=== PATIENT | female | born 1990 | race Caucasian/White ===

== ENCOUNTER 2020-01-01 11:22 | Emergency (ER) | payer BC, OTHER ==
[2020-01-01] MEDS ORDERED: methylPREDNISolone SOD SUCCI 125 MG/2 ML VIAL IV STA (12:06)
[2020-01-01] MEDS ORDERED: SODIUM CHLORIDE 0.9% 1,000 ML IV ONE (12:06)
[2020-01-01] MEDS ORDERED: guaiFENesin-Coden 100-10MG/5ML 10 ML CUP PO STA (12:06)
[2020-01-01] MEDS ORDERED: IPRATROPIUM-ALBUTEROL 3 ML NEB INHALATION STA (12:06)
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
--- NOTE | 2020-01-01 13:03 | XR ---
EXAMINATION TYPE: XR chest 2V DATE OF EXAM: 01/01/2020 COMPARISON: 05/10/2015 HISTORY: Cough and congestion TECHNIQUE: Frontal and lateral views of the chest are obtained. FINDINGS: There is increased density over the spine in the lateral image. No pleural effusion or pne umothorax. The cardiac silhouette size is within normal limits. The osseous structures are intact. IMPRESSION: Retrocardiac opacity overlying the lower thoracic spine on the lateral view may represen t pneumonia in the appropriate clinical setting. This is new from the prior of 2014.
[2020-01-01] MEDS ORDERED: cefTRIAXone IN SWFI 1,000 MG/10 ML SYRINGE IVP STA (13:31)
[2020-01-01 14:09] VITALS: BP 146/92; PULSE 105; RESP 18; TEMP 97.4
== END 2020-01-01 14:45 | disposition home or self-care (01) ==
LOC: EC 11:22
DX: J18.9 Pneumonia, unspecified organism (principal); I10 Essential (primary) hypertension; Z79.1 Long term (current) use of non-steroidal anti-inflammatories (NSAID); Z79.899 Other long term (current) drug therapy; Z88.0 Allergy status to penicillin; Z87.891 Personal history of nicotine dependence
CPT/HCPCS: 94640; 71046; 99284; 96374; 96375; 96361; J2930; J0696

== ENCOUNTER 2020-01-07 00:20 | Observation (INO) | payer OTHER ==
[2020-01-07] MEDS ORDERED: ALBUTEROL NEBULIZED 2.5 MG/3 ML INHALATION STA (00:47)
[2020-01-07] MEDS ORDERED: predniSONE 20 MG TAB PO STA (00:47)
[2020-01-07] MEDS ORDERED: IPRATROPIUM-ALBUTEROL 3 ML NEB INHALATION STA (00:47)
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
[2020-01-07 01:15] LABS: Basophils # (A) 0.1 k/uL (0-0.2); Basophils % (A) 1 %; Eosinophils # (A) 0.2 k/uL (0-0.7); Eosinophils % (A) 1 %; HCT 40.4 % (34.0-46.0); HGB 13.9 gm/dL (11.4-16.0); Lymphocytes # (A) 3.7 k/uL (1.0-4.8); Lymphocytes % (A) 25 %; MCH 30.4 pg (25.0-35.0); MCHC 34.4 g/dL (31.0-37.0); MCV 88.3 fL (80.0-100.0); Mean Platelet Volume 7.1; Monocytes # (A) 0.6 k/uL (0-1.0); Monocytes % (A) 4 %; Neutrophils # (A) 9.9 k/uL (1.3-7.7); Neutrophils % (A) 67 %; Platelet Count 606 k/uL (150-450); RBC 4.58 m/uL (3.80-5.40); RDW 13.1 % (11.5-15.5); WBC 14.9 k/uL (3.8-10.6)
[2020-01-07 01:24] LABS: African American GFR (CKD) >90 (>60 ml/min/1.73 sqM); Anion Gap 8 mmol/L; Blood Urea Nitrogen 13 mg/dL (7-17); Calcium 9.2 mg/dL (8.4-10.2); Carbon Dioxide 26 mmol/L (22-30); Chloride 101 mmol/L (98-107); Glucose 114 mg/dL (74-99); Non-African American GFR(CKD) >90 (>60 ml/min/1.73 sqM); Potassium 4.1 mmol/L (3.5-5.1); Sodium 135 mmol/L (137-145)
--- NOTE | 2020-01-07 02:51 | CT ---
EXAMINATION TYPE: CT chest angio for PE DATE OF EXAM: 01/07/2020 COMPARISON: None HISTORY: Patient presents with elevated d-dimer. CT DLP: 1103.1 mGycm Automated exposure control for dose reduction was used. CONTRAST: Performed with IV Contrast, patient injected with 75 mL of Isovue 370. There are 3-D post processed images. Images were performed from the thoracic inlet to the diaphragm with IV contrast. There is some airspace consolidation and atelectasis left lower lobe. There are multiple air bronchog deonna. There is no pleural effusion. Right lung is clear. There is no mediastinal adenopathy. There are no hilar masses. Thoracic aorta is intact without evide nce of aneurysm or dissection. There is normal contrast opacification of the pulmonary arteries. There is no filling defect. Bony thorax is intact. IMPRESSION: Left lower lobe pneumonia and atelectasis. No evidence of pulmonary embolism. Normal heart.
[2020-01-07] MEDS ORDERED: PNEUMONIA PROTOCOL UTILIZED 1 EACH MISC PO PRN (04:05)
[2020-01-07] MEDS ORDERED: LEVOFLOXACIN 750MG-D5W PMX 750 MG in DEXTROSE/WATER 1 150ML.BAG IVPB STA (04:05)
[2020-01-07] MEDS ORDERED: AZTREONAM 2 GM in SODIUM CHLORIDE 0.9% 100 ML IVPB STA (04:08)
[2020-01-07] MEDS ORDERED: SODIUM CHLORIDE 0.9% 1,000 ML IV SCH (04:15)
[2020-01-07] MEDS ORDERED: IPRATROPIUM-ALBUTEROL 3 ML NEB INHALATION SCH (08:00)
[2020-01-07] MEDS ORDERED: PNEUMOCOCCAL VACC-PNEUMOVAX 23 25 MCG/0.5 ML VIAL IM ONE ×2 (11:41→12:09)
[2020-01-07] MEDS ORDERED: INFLUENZA VACCINE (6 MOS+) 60 MCG/0.5 ML SYRINGE IM ONE ×2 (11:41→12:09)
[2020-01-07] MEDS ORDERED: methylPREDNISolone SOD SUCCI 125 MG/2 ML VIAL IV STA (11:55)
[2020-01-07] MEDS ORDERED: NICOTINE 14MG/24HR PATCH TRANSDERM SCH (12:00)
[2020-01-07] MEDS ORDERED: ENOXAPARIN 40 MG/0.4 ML SYRINGE SQ SCH (12:00)
[2020-01-07] MEDS: BUDESONIDE 1 MG/2 ML NEBU INHALATION SCH ×2 (12:06→16:24)
[2020-01-07] MEDS: IPRATROPIUM-ALBUTEROL 3 ML NEB INHALATION SCH ×2 (12:08→16:21)
[2020-01-07] MEDS ORDERED: AZTREONAM 2 GM in SODIUM CHLORIDE 0.9% 100 ML IVPB SCH (12:30)
[2020-01-07 13:33] VITALS: BP 133/82; RESP 20; TEMP 97.6
--- NOTE | 2020-01-07 15:43 | XR ---
EXAMINATION TYPE: XR chest 2V DATE OF EXAM: 01/07/2020 COMPARISON: Prior chest x-ray 01/01/2020 HISTORY: Pneumonia TECHNIQUE: Frontal and lateral views of the chest are obtained. FINDINGS: There is some improvement in aeration within the left lower lobe. Some persistent increase d density is present. No pneumothorax or pleural effusion. Cardiac mediastinal silhouette, pulmonary vascularity and naseem are stable. IMPRESSION: Improvement in patient's pneumonia.
[2020-01-07 16:41] VITALS: PULSE 94
[2020-01-08] MEDS ORDERED: LEVOFLOXACIN 750MG-D5W PMX 750 MG in DEXTROSE/WATER 1 150ML.BAG IVPB SCH (04:15)
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
== END 2020-01-07 18:09 | disposition home or self-care (01) ==
LOC: EC 00:20 → 4SSUR 04:05 → 6NMEDSUR 05:01
PROVIDERS: ADMIT Hospitalist; ATTEND Hospitalist
DX: J12.9 Viral pneumonia, unspecified (principal); J98.01 Acute bronchospasm; F17.210 Nicotine dependence, cigarettes, uncomplicated; E66.01 Morbid (severe) obesity due to excess calories; Z68.41 Body mass index [BMI] 40.0-44.9, adult; G89.29 Other chronic pain; M54.9 Dorsalgia, unspecified; F41.9 Anxiety disorder, unspecified; Z79.51 Long term (current) use of inhaled steroids; Z79.52 Long term (current) use of systemic steroids; Z79.899 Other long term (current) drug therapy; Z79.2 Long term (current) use of antibiotics; Z23 Encounter for immunization; Z88.0 Allergy status to penicillin; V89.2XXA Person injured in unspecified motor-vehicle accident, traffic, initial encounter; Y92.410 Unspecified street and highway as the place of occurrence of the external cause
CPT/HCPCS: 96366 ×2; 96375; 96365; 96367; 99285; 36415; 94640 ×2; 94760; 85379; 83880; 80048; 85025; 87040; 87502; 71046; 71275; 90732; 90686; G0378 ×2; G0008; G0009; J2930; J1956; J7512; Q9967

== ENCOUNTER 2022-03-13 10:41 | Outpatient (CLI) | payer OTHER ==
[2022-03-13 11:41] LABS: Appearance,Urine Clear (Clear); Bilirubin,Urine Negative (Negative); Blood,Urine Negative (Negative); Color,Urine Yellow; Glucose,Urine (UA) Negative (Negative); Ketones,Urine Negative (Negative); Leukocyte Esterase,Urine Negative (Negative); Nitrite,Urine Negative (Negative); PH, Urine 6.5 (5.0-8.0); Protein,Urine Negative (Negative); Specific Gravity,Urine 1.008 (1.001-1.035); Urobilinogen,Urine <2.0 mg/dL (<2.0)
[2022-03-13 11:50] LABS: Creatinine,Urine Random 58.6 mg/dL; Protein/Creatinine Ratio,Urine 0.171
[2022-03-13 12:19] LABS: Basophils % (A) 0 %; Eosinophils # (A) 0.1 k/uL (0-0.7); Eosinophils % (A) 1 %; HCT 36.1 % (34.0-46.0); Lymphocytes # (A) 1.4 k/uL (1.0-4.8); Lymphocytes % (A) 18 %; MCH 29.8 pg (25.0-35.0); MCHC 33.2 g/dL (31.0-37.0); MCV 89.9 fL (80.0-100.0); Mean Platelet Volume 7.6; Monocytes # (A) 0.3 k/uL (0-1.0); Monocytes % (A) 4 %; Neutrophils # (A) 5.5 k/uL (1.3-7.7); Neutrophils % (A) 75 %; Platelet Count 300 k/uL (150-450); RBC 4.01 m/uL (3.80-5.40); RDW 14.2 % (11.5-15.5); WBC 7.4 k/uL (3.8-10.6)
[2022-03-13 12:23] LABS: ALT 12 U/L (4-34); AST 19 U/L (14-36); African American GFR (CKD) >90 (>60 ml/min/1.73 sqM); Blood Urea Nitrogen 7 mg/dL (7-17); LDH 362 U/L (313-618); Non-African American GFR(CKD) >90 (>60 ml/min/1.73 sqM); Uric Acid 5.2 mg/dL (3.7-7.4)
[2022-03-13 12:43] VITALS: BP 118/73; PULSE 100; RESP 18; TEMP 97.2
--- NOTE | 2022-04-01 11:56 | P.MSEPDOC ---
Presenting Problems - Arrival Data Date of Arrival on Unit: 03/13/22 Time of Arrival on Unit: 10:36 Mode of Transport: Ambulatory - Complaint OB-Reason for Admission/Chief Complaint: Headache, Visual Disturbances, PIH, Elevated Blood Pressure Comment: pt presents to triage with complaints of increased blood pressures at home that came down with her labetalol, she is having on going periods of vision loss and headache Medical History - Information : 1 Para: 0 Term: 0 : 0 Abortions: Spontaneous or Elective: 0 Number of Living Children: 0 - Gestational Age Gestational Age by PEACE (wks/days): 34 Weeks and 6 Days - History Complications: Other Review of Systems - Review of Systems Constitutional: No problems Breast: No problems ENT: No problems Cardiovascular: No problems Respiratory: No problems Gastrointestinal: No problems Genitourinary: No problems Musculoskeletal: No problems Neurological: No problems Skin: No problems Vital Signs - Temperature Temperature: 97.2 F Temperature Source: Temporal Artery Scan - Pulse Right Sitting Brachial Pulse Rate: 100 Pulse Assessment Method: Automatic Cuff - Respirations Respiratory Rate: 18 O2 Sat by Pulse Oximetry: 100 - Blood Pressure Right Arm Blood Pressure: 118/73 Blood Pressure Mean: 88 Blood Pressure Source: Automatic Cuff Medical Screen Scoring - Uterine Contractions Frequency From (mins): 0 Frequency To (mins): 0 Intensity: Absent - Assessment - Baby A Baseline FHR: 145 Heart Rate - NICHD Category: Category I (Normal) NST: Reactive Physician Notification - Physician Notified Physician Notified Date: 03/13/22 Physician Notified Time: 11:04 Physician: Baron Westbrook Order Received: Yes Maternal Triage Index - Maternal Triage Index Presenting for scheduled procedure w/no complaint: No - Stat/Priority 1 Stat Priority 1: No - Urgent/Priority 2 Urgent Priority 2: No - Prompt/Priority 3 Prompt Priority 3: No - Non-Urgent/Priority 4 Non-Urgent Priority 4: Yes Criteria Met for Priority 4: pt presents to triage with complaints of increased blood pressure at home, headache and vision loss. Blood pressure in triage on admission 118/73 Disposition - Disposition OB Disposition: Physician follow up in office, Discharge to home, Written follow up instructions reviewed Discharge Date: 03/13/22 Discharge Time: 12:30 I agree with the RN Medical Screening Exam: Yes Physician's MSE Comment: I have neither seen nor examined the patient. Case reviewed; plan agreed upon as documented in EMR&OBIX.: Yes Diagnosis: RELATED CONDITIONS, UNSPECIFIED, THIRD TRIMESTER
== END 2022-03-13 12:30 | disposition home or self-care (01) ==
LOC: FBPOP 10:41
PROVIDERS: ATTEND Obstetrics & Gynecology
DX: O13.3 Gestational [pregnancy-induced] hypertension without significant proteinuria, third trimester (principal); Z3A.34 34 weeks gestation of pregnancy; Z88.0 Allergy status to penicillin; Z88.2 Allergy status to sulfonamides; Z87.891 Personal history of nicotine dependence
CPT/HCPCS: 59025; 82570; 84156; 82565; 83615; 84450; 84460; 84520; 84550; 85025; 81003; G0463; 99215

== ENCOUNTER 2022-03-16 14:03 | Observation (INO) | payer OTHER ==
[2022-03-16] MEDS: BETAMET ACET-BETAMETH SOD PHOS 6 MG/ML MDV IM SCH (14:57)
[2022-03-16 15:07] LABS: Basophils % (A) 0 %; Eosinophils # (A) 0.1 k/uL (0-0.7); Eosinophils % (A) 1 %; HCT 37.8 % (34.0-46.0); HGB 12.4 gm/dL (11.4-16.0); Lymphocytes # (A) 1.8 k/uL (1.0-4.8); Lymphocytes % (A) 19 %; MCH 29.7 pg (25.0-35.0); MCHC 32.9 g/dL (31.0-37.0); MCV 90.4 fL (80.0-100.0); Mean Platelet Volume 8.3; Monocytes # (A) 0.5 k/uL (0-1.0); Monocytes % (A) 5 %; Neutrophils % (A) 74 %; Platelet Count 295 k/uL (150-450); RBC 4.18 m/uL (3.80-5.40); RDW 13.5 % (11.5-15.5); WBC 9.5 k/uL (3.8-10.6)
[2022-03-16 15:09] LABS: ALT 15 U/L (4-34); African American GFR (CKD) >90 (>60 ml/min/1.73 sqM); Blood Urea Nitrogen 5 mg/dL (7-17); Non-African American GFR(CKD) >90 (>60 ml/min/1.73 sqM); Uric Acid 4.9 mg/dL (3.7-7.4)
[2022-03-16 15:26] LABS: AST 23 U/L (14-36); LDH 553 U/L (313-618)
[2022-03-16 15:32] LABS: Appearance,Urine Cloudy (Clear); Bacteria,Urine Rare /hpf; Bilirubin,Urine Negative (Negative); Blood,Urine Negative (Negative); Color,Urine Yellow; Glucose,Urine (UA) Negative (Negative); Ketones,Urine Negative (Negative); Leukocyte Esterase,Urine Moderate (Negative); Mucus,Urine Few /hpf; Nitrite,Urine Negative (Negative); Protein,Urine Trace (Negative); RBC,Urine 1 /hpf (0-5); Specific Gravity,Urine 1.022 (1.001-1.035); Squamous Epithelial Cell,Urine 22 /hpf (0-4); Urobilinogen,Urine <2.0 mg/dL (<2.0); WBC,Urine 6 /hpf (0-5)
[2022-03-16 15:39] LABS: INR 0.8 (<1.2); Partial Thromboplastin Time 24.7 sec (22.0-30.0); Prothrombin Time 9.4 sec (9.0-12.0)
[2022-03-16 15:58] LABS: Creatinine,Urine Random 160.6 mg/dL; Protein/Creatinine Ratio,Urine 0.062
[2022-03-16] MEDS ORDERED: ONDANSETRON 4 MG/2 ML VIAL IVP PRN (16:14)
[2022-03-16] MEDS ORDERED: ACETAMINOPHEN TAB 500 MG TAB PO PRN (17:00)
[2022-03-16] MEDS: LABETALOL 200 MG TAB PO SCH (21:03)
[2022-03-17 07:22] VITALS: RESP 18
[2022-03-17] MEDS ORDERED: PANTOPRAZOLE 40 MG TABLET PO SCH (07:30)
[2022-03-17 07:55] LABS: ALT 14 U/L (4-34); AST 17 U/L (14-36); African American GFR (CKD) >90 (>60 ml/min/1.73 sqM); Blood Urea Nitrogen 7 mg/dL (7-17); LDH 377 U/L (313-618); Non-African American GFR(CKD) >90 (>60 ml/min/1.73 sqM); Uric Acid 5.1 mg/dL (3.7-7.4)
[2022-03-17 08:49] LABS: Basophils % (A) 0 %; Eosinophils % (A) 0 %; HCT 36.7 % (34.0-46.0); HGB 12.1 gm/dL (11.4-16.0); Lymphocytes # (A) 1.4 k/uL (1.0-4.8); Lymphocytes % (A) 12 %; MCH 29.9 pg (25.0-35.0); MCHC 32.9 g/dL (31.0-37.0); MCV 90.7 fL (80.0-100.0); Mean Platelet Volume 8.2; Monocytes # (A) 0.4 k/uL (0-1.0); Monocytes % (A) 3 %; Neutrophils # (A) 10.4 k/uL (1.3-7.7); Neutrophils % (A) 84 %; Platelet Count 312 k/uL (150-450); RBC 4.04 m/uL (3.80-5.40); RDW 13.6 % (11.5-15.5); WBC 12.3 k/uL (3.8-10.6)
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
--- NOTE | 2022-03-17 09:07 | P.PN ---
Subjective Progress Note Date: 03/17/22 Principal diagnosis: IUP @ 35 2/7 weeks, chronic HTN 31yo at 35 2/7 weeks with a known dx of chronic HTN, BP uncontrolled at night. Patient has done well overnight. Blood pressures 120s 130s over 70s to 80s. Patient denies headache. Preeclampsia labs last evening were negative, protein creatinine ratio of 0.06. Awaiting 24 hour urine collection. Patient did receive 1 dose of betamethasone in addition. Patient states she feels well, NST has been reactive this morning. Objective - Vital Signs Vital signs: Vital Signs Temp 97.6 F 03/17/22 07:21 Pulse 85 03/17/22 07:21 Resp 18 03/17/22 07:21 BP 133/73 03/17/22 07:21 Pulse Ox 98 03/17/22 04:00 Intake & Output 03/16/22 03/17/22 03/17/22 18:59 06:59 18:59 Weight 139.253 kg Other: # Voids 4 - Constitutional General appearance: Present: morbidly obese, no acute distress - Respiratory Respiratory: bilateral: CTA - Cardiovascular Rhythm: regular - Gastrointestinal Gastrointestinal Comment(s): obese, gravid - Psychiatric Psychiatric: Present: A&O x's 3, appropriate affect, intact judgment & insight - Labs CBC & Chem 7: 03/17/22 07:18 03/17/22 07:18 Labs: Abnormal Lab Results - Last 24 Hours (Table) 03/16/22 03/16/22 03/17/22 Range/Units 14:05 14:45 07:18 WBC (3.8-10.6) k/uL Neutrophils # (1.3-7.7) k/uL BUN 5 L (7-17) mg/dL Creatinine 0.50 L 0.50 L (0.52-1.04) mg/dL Urine Appearance Cloudy H (Clear) Urine Protein Trace H (Negative) Ur Leukocyte Esterase Moderate H (Negative) Urine WBC 6 H (0-5) /hpf Ur Squamous Epith Cells 22 H (0-4) /hpf Urine Bacteria Rare H (None) /hpf Urine Mucus Few H (None) /hpf 03/17/22 Range/Units 07:18 WBC 12.3 H (3.8-10.6) k/uL Neutrophils # 10.4 H (1.3-7.7) k/uL BUN (7-17) mg/dL Creatinine (0.52-1.04) mg/dL Urine Appearance (Clear) Urine Protein (Negative) Ur Leukocyte Esterase (Negative) Urine WBC (0-5) /hpf Ur Squamous Epith Cells (0-4) /hpf Urine Bacteria (None) /hpf Urine Mucus (None) /hpf Assessment and Plan (1) 35 to 36 weeks gestation of Current Visit: Yes Status: Acute Code(s): KTI6706 - SNOMED Code(s): 634220242 (2) HTN (hypertension) Current Visit: Yes Status: Acute Code(s): I10 - ESSENTIAL (PRIMARY) HYPERTENSION SNOMED Code(s): 92237473 Plan: 31-year-old at 35-3/7 weeks that was admitted yesterday for observation and 24 hour urine collection given chronic hypertension. Patient is doing well. Blood pressures have been well controlled. Betamethasone was given yesterday. She will continue with her 24 urine collection. Awaiting results. Discussed with patient most likely she will be discharged home given normal blood pressures and normal labs 2. I plan to wait for completion of 24 urine collection second betamethasone injection. Patient states understanding. We will await 24-hour urine culture result.
[2022-03-17] MEDS: LABETALOL 200 MG TAB PO SCH (09:23)
[2022-03-17 14:20] LABS: Total Volume 24 Hour,Urine 3150 mls (800-1800)
[2022-03-17 14:35] LABS: Total Protein 24 Hour,Urine 315 mg/24hr (42.0-225.0)
[2022-03-17] MEDS ORDERED: LABETALOL 100 MG TAB PO SCH (15:00)
[2022-03-17] MEDS: BETAMET ACET-BETAMETH SOD PHOS 6 MG/ML MDV IM SCH (15:07)
[2022-03-17 15:09] LABS: 24-hr Urine Specific Gravity 1.009 (1.001-1.035)
[2022-03-17 15:18] VITALS: BP 123/62; PULSE 95; TEMP 98.6
== END 2022-03-17 17:00 | disposition home or self-care (01) ==
LOC: 4FBP 14:03
PROVIDERS: ADMIT Obstetrics & Gynecology Obstetrics; ATTEND Obstetrics & Gynecology Obstetrics
DX: O10.913 Unspecified pre-existing hypertension complicating pregnancy, third trimester (principal); O26.90 Pregnancy related conditions, unspecified, unspecified trimester; M54.9 Dorsalgia, unspecified; Z3A.36 36 weeks gestation of pregnancy; Z87.01 Personal history of pneumonia (recurrent); Z79.899 Other long term (current) drug therapy; Z88.0 Allergy status to penicillin; Z88.2 Allergy status to sulfonamides
CPT/HCPCS: 96372 ×2; 82570; 84156 ×2; 81050; 82565 ×2; 83615 ×2; 84450 ×2; 84460 ×2; 84520 ×2; 84550 ×2; 85025 ×2; 85384; 85610; 85730; 81001; G0379; G0378 ×2; J0702 ×2

== ENCOUNTER 2022-03-28 15:03 | Inpatient (IN) | payer OTHER ==
[2022-03-28] MEDS ORDERED: DINOPROSTONE 10 MG INSERT.ER VAGINAL ONE (16:15)
[2022-03-28 16:53] LABS: Basophils # (A) 0.1 k/uL (0-0.2); Basophils % (A) 0 %; Eosinophils # (A) 0.1 k/uL (0-0.7); Eosinophils % (A) 1 %; HCT 37.3 % (34.0-46.0); HGB 12.4 gm/dL (11.4-16.0); Lymphocytes # (A) 2.2 k/uL (1.0-4.8); Lymphocytes % (A) 18 %; MCH 29.6 pg (25.0-35.0); MCHC 33.3 g/dL (31.0-37.0); MCV 88.8 fL (80.0-100.0); Monocytes # (A) 0.5 k/uL (0-1.0); Monocytes % (A) 4 %; Neutrophils # (A) 9.1 k/uL (1.3-7.7); Neutrophils % (A) 76 %; Platelet Count 334 k/uL (150-450); RBC 4.19 m/uL (3.80-5.40); RDW 13.3 % (11.5-15.5); WBC 12.1 k/uL (3.8-10.6)
[2022-03-28 16:56] LABS: ALT 15 U/L (4-34); AST 23 U/L (14-36); African American GFR (CKD) >90 (>60 ml/min/1.73 sqM); Blood Urea Nitrogen 11 mg/dL (7-17); LDH 547 U/L (313-618); Non-African American GFR(CKD) >90 (>60 ml/min/1.73 sqM); Uric Acid 5.5 mg/dL (3.7-7.4)
[2022-03-28 21:01] LABS: INR 0.8 (<1.2); Prothrombin Time 9.3 sec (9.0-12.0)
[2022-03-29] MEDS: LABETALOL 100 MG TAB PO SCH ×2 (01:07→09:12)
[2022-03-29] MEDS ORDERED: OXYTOCIN 10 UNIT/ML 1 ML VIAL IM PRN (05:09)
[2022-03-29] MEDS ORDERED: TERBUTALINE 1 MG/ML VIAL SQ PRN (05:09)
[2022-03-29] MEDS ORDERED: METHYLERGONOVINE 0.2 MG/ML 1 ML AMP IM PRN (05:09)
[2022-03-29] MEDS ORDERED: LIDOCAINE 1% (PF) 10 MG/ML (30 ML SDV) SQ PRN (05:09)
[2022-03-29] MEDS ORDERED: CARBOPROST TROMETHAMINE 250 MCG/ML 1 ML AMP IM PRN (05:09)
[2022-03-29] MEDS ORDERED: OXYTOCIN 30 UNITS/500 ML NS 30 UNIT in SALINE 1 500ML.BAG IV SCH ×2 (05:15→22:45)
[2022-03-29] MEDS: LACTATED RINGERS 1,000 ML IV SCH ×3 (06:02→21:05)
[2022-03-29 08:56] LABS: Creatinine,Urine Random 162.2 mg/dL; Protein/Creatinine Ratio,Urine 0.049
[2022-03-29] MEDS ORDERED: BUTORPHANOL 1 MG/ML 1 ML VIAL IV PRN (14:39)
[2022-03-29] MEDS ORDERED: LABETALOL 200 MG TAB PO SCH (15:00)
[2022-03-29] MEDS ORDERED: CITRIC ACID-SODIUM CITRATE 15 ML CUP PO ONE (20:51)
[2022-03-29] MEDS ORDERED: ceFAZolin 3 GM in SODIUM CHLORIDE 0.9% 100 ML IVPB ONE (20:51)
[2022-03-29] MEDS ORDERED: LABETALOL HCL 300 MG PO SCH (21:00)
[2022-03-29] MEDS ORDERED: PROPOFOL 10 MG/ML 20 ML VIAL IV ONE (21:12)
[2022-03-29] MEDS ORDERED: DEXAMETHASONE SOD PHOSPHATE 10 MG/ML 1 ML VIAL ONE (21:12)
[2022-03-29] MEDS ORDERED: fentaNYL (PF) 50 MCG/ML 2 ML AMP ONE (21:12)
[2022-03-29] MEDS ORDERED: SUCCINYLCHOLINE CHLORIDE VIAL 200 MG/10 ML VIAL IV ONE (21:12)
[2022-03-29] MEDS ORDERED: NALBUPHINE 10 MG/ML (1 ML AMP) ONE (21:12)
[2022-03-29] MEDS ORDERED: MORPHINE SULFATE (PF) 0.3 MG/0.3 ML SYR ONE (21:12)
[2022-03-29] MEDS ORDERED: OXYTOCIN 30 UNITS/500 ML NS BAG IV ONE (21:12)
[2022-03-29] MEDS ORDERED: NALOXONE 0.4 MG/ML 1 ML VIAL IV PRN ×2 (21:58→22:45)
[2022-03-29] MEDS ORDERED: MORPHINE SULFATE 2 MG/ML SYRINGE IVP PRN (21:58)
[2022-03-29] MEDS ORDERED: ONDANSETRON 4 MG/2 ML VIAL IVP PRN ×2 (21:58→22:45)
[2022-03-29] MEDS ORDERED: KETOROLAC 15 MG/ML 1 ML VIAL IVP PRN (21:58)
[2022-03-29] MEDS ORDERED: diphenhydrAMINE 50 MG/ML 1 ML VIAL IVP PRN ×3 (21:58→22:45)
[2022-03-29] MEDS ORDERED: NALBUPHINE 10 MG/ML (1 ML AMP) IV PRN (21:58)
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
--- NOTE | 2022-03-29 22:17 | P.OP ---
Date of Procedure: 03/29/22 Preoperative Diagnosis: IUP at 37 and 0, chronic hypertension, failed induction Postoperative Diagnosis: Same Procedure(s) Performed: Primary low transverse section Anesthesia: spinal Surgeon: Hue Thompson Security Officer #1: Vianey Calderon Pathology: other (Placenta) Condition: stable Disposition: observation Indications for Procedure: 31-year-old 1 para 0 at 37-0/7 weeks that presents to labor and delivery for induction secondary to chronic hypertension on labetalol 300 mg a.m. 200 mg afternoon 300 mg p.m. Patient has had multiple preeclampsia workups which were negative. 24 urine revealing a 300 mg result. Patient has been on bedrest for the last 2 weeks secondary to elevated blood pressures despite labetalol treatment. Patient received betamethasone at 35 weeks in addition. Patient was admitted Cervidil induction of labor was begun. Patient was noted to be 1 cm thick and high presentation. Patient did contract through the evening becoming somewhat uncomfortable, on exam in the morning when the Cervidil was removed she was still 1 thick and -3 station. Amniotomy was performed and clear fluid was obtained. Prior to amniotomy Pitocin augmentation of labor was begun. On amniotomy patient was noted to be 1-2 cm 50 and -3 station. Throughout the day patient made progress to 2-3 cm. She essentially stalled for multiple hours at 2-3 cm. At approximately 845 patient was counseled on lack of progress. Patient's mom states this same scenario happened to her and she proceeded with . Patient and her significant other states they have been discussing it and would like to proceed with secondary to lack of progress. Discussed with patient options of continuing on in labor versus proceeding with primary , patient states she would like to proceed with . Operative Findings: Normal uterus ovaries and tubes were appreciated, viable female infant delivered at 2145 via vacuum assist, weight of 6 lbs. 8 oz., Apgars of 7 and 9 at one and 5 minutes respectively. Approximately 5-6 inches of subcutaneous tissue prior to entering the fascia was appreciated. Description of Procedure: Patient was taken back to the operating suite where spinal anesthesia was found be inadequate, general anesthesia was obtained without difficulty by the anesthesia department. Patient was prepped and draped prior to anesthesia in a dorsal supine position, Kyle catheter had been placed under sterile technique. A Pfannenstiel skin incision was made with the scalpel and carried through through a significant amount of subcutaneous tissue approximately 5-6 inches. The fascia was then incised in the midline and the incision was extended laterally. The superior aspect of the fascial incision was grasped leann clamps, elevated and underlying rectus muscle was dissected off sharply. The inferior aspect of the fascial incision was then grasped leann clamps, elevated and underlying rectus muscles dissected off sharply. The rectus muscles were in the midline and the peritoneum was identified and entered. This incision was then extended superiorly and inferiorly with good visualization the bladder. A ring retractor was then placed into the incision for better visualization. Hysterotomy incision was made with the scalpel as the bladder was noted to be far away from the operating field. The was encountered in a vertex presentation secondary to maternal size a vacuum was placed in the infant was delivered in a vertex presentation. Spontaneous cry was noted at . The umbilical cord was doubly clamped and cut and patient was handed to awaiting RN. The placenta was then delivered manually and the uterus was cleared of all clots and debris. The uterine incision was closed 0 Vicryl in a running locked fashion from one lateral edge the other lateral edge. A second inverting suture was performed. The gutters were cleared of all clots and debris. The uterine incision was inspected and a small amount bleeding was noted in the midportion of the uterine incision therefore a [id number] suture was used to obtain hemostasis. The ring retractor was removed without difficulty. The peritoneum was then loosely reapproximated. The rectus muscles were inspected and found to be hemostatic. The fascia was then closed with 0 Vicryl in a running fashion from one lateral edge the midline and the other lateral edge the midline. The subcu cutaneous tissue was irrigated and any points of bleeding were made hemostatic with the Bovie. The subcutaneous tissues closed with 3-0 Vicryl in a running fashion. The skin was then closed with 4-0 Vicryl in a subcu fashion. Steri- Strips and sterile dressings were applied. All counts were noted be correct 2 after the procedure was complete. Patient and tolerated delivery well and are resting comfortably.
[2022-03-29] MEDS ORDERED: METOCLOPRAMIDE 5 MG/ML 2 ML VIAL IVP PRN (22:45)
[2022-03-29] MEDS ORDERED: ZOLPIDEM 5 MG TAB PO PRN (22:45)
[2022-03-29] MEDS ORDERED: diphenhydrAMINE 25 MG CAP PO PRN (22:45)
[2022-03-29] MEDS ORDERED: diphenhydrAMINE 50 MG CAP PO PRN (22:45)
[2022-03-29] MEDS: IBUPROFEN IV 800 MG in SODIUM CHLORIDE 0.9% 250 ML IV SCH ×2 (23:45→23:55)
[2022-03-30] MEDS: LABETALOL 100 MG TAB PO SCH ×2 (00:53→07:36)
[2022-03-30] MEDS: ACETAMINOPHEN TAB 500 MG TAB PO SCH ×4 (00:53→16:47)
[2022-03-30] MEDS: LACTATED RINGERS 1,000 ML IV SCH ×5 (00:53→14:56)
[2022-03-30] MEDS: IBUPROFEN 600 MG TAB PO SCH ×4 (03:17→20:52)
[2022-03-30] MEDS: ACETAMINOPHEN IV (For NPO) 1,000 MG in EMPTY BAG 1 BAG IVPB SCH ×2 (03:44→10:45)
[2022-03-30] MEDS: PRENATAL VIT-IRON-FOLIC ACID 1 EACH CAP PO SCH (07:36)
[2022-03-30] MEDS: SENNOSIDES-DOCUSATE SODIUM 1 EACH TAB PO SCH ×2 (07:36→20:51)
[2022-03-30] MEDS: IBUPROFEN IV 800 MG in SODIUM CHLORIDE 0.9% 250 ML IV SCH ×2 (07:36→23:25)
[2022-03-30 07:39] LABS: Basophils % (A) 0 %; Eosinophils % (A) 0 %; HCT 29.2 % (34.0-46.0); Lymphocytes # (A) 1.9 k/uL (1.0-4.8); Lymphocytes % (A) 15 %; MCH 29.8 pg (25.0-35.0); MCHC 33.2 g/dL (31.0-37.0); MCV 89.7 fL (80.0-100.0); Mean Platelet Volume 7.9; Monocytes # (A) 0.5 k/uL (0-1.0); Monocytes % (A) 4 %; Neutrophils # (A) 9.9 k/uL (1.3-7.7); Neutrophils % (A) 80 %; Platelet Count 248 k/uL (150-450); RBC 3.25 m/uL (3.80-5.40); RDW 13.6 % (11.5-15.5); WBC 12.4 k/uL (3.8-10.6)
[2022-03-30 07:41] LABS: HGB 9.7 gm/dL (11.4-16.0)
--- NOTE | 2022-03-30 09:22 | P.PN ---
Progress Note - Text Progress Note Date: 03/30/22 (602) Anesthesia POD #1 c/s with duramorph Pt seen and examined. Doing better after breakthrough medications. VAS 4/10. Up to 7/10 with meds. No nausea/vomiting. Mild pruritis - tolerable. Gross LE strength intact. Discussed symptoms of potential anesthesia complications and patient stated understand. Without untoward anesthetic complication. nonlabored respirations. Reg rate. PP abdomen - not distended. A: pod 1 s/p c/s with duramorph P: your continued medical care.
[2022-03-30] MEDS: BACITRACIN OINT 1 EACH PACKET TOPICAL PRN (16:48)
[2022-03-30] MEDS: LABETALOL 200 MG TAB PO SCH (20:54)
[2022-03-31] MEDS: ACETAMINOPHEN TAB 500 MG TAB PO PRN ×3 (00:18→13:56)
[2022-03-31] MEDS: IBUPROFEN 600 MG TAB PO SCH ×3 (02:50→16:27)
[2022-03-31] MEDS: SENNOSIDES-DOCUSATE SODIUM 1 EACH TAB PO SCH (08:10)
[2022-03-31] MEDS: SIMETHICONE 80 MG CHEWABLE PO PRN ×2 (08:10→13:55)
--- NOTE | 2022-03-31 08:10 | P.PNOBGPC ---
Subjective - Subjective Principal diagnosis: Postop day 1, status post low transverse section Interval history: 31-year-old 1 now para 1 status post primary for failed induction of labor, patient is doing well this morning she is ambulating without difficult. Awaiting spontaneous void. She states her pain is moderately controlled. Lochia is minimal. She is breast-feeding with some difficulty. Patient reports: Reports appetite normal, Reports pain well controlled, Reports ambulating normally : doing well Objective - Vital Signs Latest vital signs: Vital Signs Temp Pulse Resp BP Pulse Ox 03/30/22 10:00 18 98 03/30/22 08:00 97.9 F 91 18 132/87 98 03/30/22 05:19 97 03/30/22 05:18 16 98 03/30/22 03:45 98.3 F 87 16 141/85 99 03/30/22 02:16 95 03/30/22 02:00 18 96 03/30/22 00:58 16 97 03/30/22 00:34 96.6 F L 82 14 132/75 96 03/30/22 00:04 87 16 132/72 99 03/29/22 23:34 87 14 127/66 96 03/29/22 23:19 93 16 137/69 94 L 03/29/22 23:04 90 16 143/79 94 L 03/29/22 22:58 16 94 L 03/29/22 22:49 91 18 145/82 96 03/29/22 22:34 96.4 F L 91 14 141/84 94 L Intake and Output 03/29/22 03/30/22 03/30/22 22:59 06:59 14:59 Intake Total 31.033 Output Total 850 449 100 Balance -818.967 -449 -100 Intake: Intake, IV Titration 31.033 Amount Oxytocin 30 Units/500 ml 31.033 Ns 30 unit In Saline 1 500ml.bag @ Per Protocol IV .Q0M [facility] Rx#:[id number] Output: Urine 375 100 Uretheral (Kyle) 100 Output, Quantitative 850 74 Blood Loss - Exam Extremities: Present: normal, edema Abdomen: Present: normal appearance, soft Incision: Present: normal, intact - Labs Labs: Abnormal Lab Results - Last 24 Hours (Table) 03/30/22 Range/Units 07:00 WBC 12.4 H (3.8-10.6) k/uL RBC 3.25 L (3.80-5.40) m/uL Hgb 9.7 L D (11.4-16.0) gm/dL Hct 29.2 L (34.0-46.0) % Neutrophils # 9.9 H (1.3-7.7) k/uL Assessment and Plan (1) 37 weeks gestation of Current Visit: Yes Status: Acute Code(s): Z3A.37 - 37 WEEKS GESTATION OF SNOMED Code(s): 72893891 (2) HTN (hypertension) Current Visit: No Status: Acute Code(s): I10 - ESSENTIAL (PRIMARY) HYPERTENSION SNOMED Code(s): 45251675 (3) Obesity Current Visit: Yes Status: Acute Code(s): E66.9 - OBESITY, UNSPECIFIED S NOMED Code(s): 264444130 Plan: 31-year-old G1 now P1 status post primary for failed induction, chronic hypertension for outpatient management with blood pressures 140s to 160s over 90s to 100. Patient is doing well postoperatively. We'll continue routine postoperative care.
--- NOTE | 2022-03-31 08:20 | P.DS ---
Providers Date of admission: 03/28/22 16:00 Expected date of discharge: 03/31/22 Attending physician: Hue Thompson Primary care physician: Bart Lopez - Discharge Diagnosis(es) (1) 37 weeks gestation of Current Visit: Yes Status: Acute (2) HTN (hypertension) Current Visit: No Status: Acute (3) Obesity Current Visit: Yes Status: Acute Hospital Course: This is a 31-year-old G1 now P1 that presented to labor and delivery at 37 weeks for induction of labor secondary to chronic hypertension. Patient had poorly controlled hypertension blood pressures 150s to 160s over 90s to 100s despite being treated treated with labetalol 3 times a day 300 mg in the morning 200 mg in the afternoon 300 mg in the evening. Patient had negative preeclampsia workup throughout the . Patient did struggle with ocular migraines. Patient in addition was seen at [facility] and was transferred to her early for elevated pressures 160s over 110s despite IV hydralazine and IV labetalol treatment. Patient was monitored at [place] and eventually sent home. Patient has continued routine care with myself. Patient was admitted to labor and delivery where Cervidil induction was begun. Patient made minimal change overnight in the morning was noted to be 1 thick and high vertex presentation. Pitocin augmentation of labor was begun. Amniotomy was performed and clear fluid was obtained. Patient progressed through the day becoming somewhat uncomfortable and receiving Stadol 1. By approximately 9 PM patient was 3 cm still 50% effaced with a high station. Patient was counseled on continuing with the induction process versus proceeding with . Patient elected given lack of progress. Patient states her mom had a smear he similar labor history. On further discussion patient states her mom's water broke she received Pitocin but never made cervical change. Patient states she is comfortable with proceeding with primary . Patient was taken back to the operating suite where spinal anesthesia was inadequate therefore general anesthesia was obtained for the . Patient delivered a viable female weight of 6 lbs. 8 oz. was difficult as subcutaneous tissue was noted to be 6 cm in depth. Patient's course has been essentially uneventful. Her blood pressures are started to normalize. 140s/80's over 90s. Her labetalol dose has been decreased to 200 mg twice daily. 2 doses have been held secondary to blood pressures of 130s over 90s. Patient states she is feeling well. She is struggling with some gas discomfort status post . Her lochia is minimal. She denies signs or symptoms of preeclampsia. Patient Condition at Discharge: Good Plan - Discharge Summary New Discharge Prescriptions: No Action Labetalol HCl [Trandate] 300 mg PO BID Labetalol [Trandate] 200 mg PO PC-LUNCH Pnv No.95/Ferrous Fum/Folic AC [ Multivitamin Tablet] 1 tab PO DAILY Discharge Medication List Labetalol HCl [Trandate] 300 mg PO BID 03/13/22 [History] Pnv No.95/Ferrous Fum/Folic AC [ Multivitamin Tablet] 1 tab PO DAILY 03/13/22 [History] Labetalol [Trandate] 200 mg PO PC-LUNCH 03/28/22 [History] Follow up Appointment(s)/Referral(s): Hue Thompson DO [Doctor of Osteopathic Medicine] - 1 Week Patient Instructions/Handouts: (GEN), (DC), Hypertension During (ED) Discharge Disposition: HOME SELF-CARE
[2022-03-31] MEDS: BACITRACIN OINT 1 EACH PACKET TOPICAL PRN (09:05)
[2022-03-31] MEDS: LABETALOL 200 MG TAB PO SCH (10:35)
[2022-03-31] MEDS: PRENATAL VIT-IRON-FOLIC ACID 1 EACH CAP PO SCH (10:38)
[2022-03-31 15:21] VITALS: BP 135/88; PULSE 88; RESP 16; TEMP 98.1
== END 2022-03-31 18:00 | disposition home or self-care (01) | DRG 787 ==
LOC: 4FBP 16:00
PROVIDERS: ADMIT Obstetrics & Gynecology Obstetrics; ATTEND Obstetrics & Gynecology Obstetrics
PROC: 10907ZC Drainage of Amniotic Fluid, Therapeutic from Products of Conception, Via Natural or Artificial Opening (ICD-10-PCS; principal; 2022-03-29 21:30)
PROC: 00HU33Z Insertion of Infusion Device into Spinal Canal, Percutaneous Approach (ICD-10-PCS; principal; 2022-03-29 21:30)
PROC: 10D00Z1 Extraction of Products of Conception, Low, Open Approach (ICD-10-PCS; principal; 2022-03-29 21:30)
PROC: 3E0P7VZ Introduction of Hormone into Female Reproductive, Via Natural or Artificial Opening (ICD-10-PCS; principal; 2022-03-29 21:30)
PROC: 3E0R3NZ Introduction of Analgesics, Hypnotics, Sedatives into Spinal Canal, Percutaneous Approach (ICD-10-PCS; principal; 2022-03-29 21:30)
DX: O10.92 Unspecified pre-existing hypertension complicating childbirth (principal); O99.354 Diseases of the nervous system complicating childbirth; O61.9 Failed induction of labor, unspecified; O99.214 Obesity complicating childbirth; O99.344 Other mental disorders complicating childbirth; G43.109 Migraine with aura, not intractable, without status migrainosus; F90.9 Attention-deficit hyperactivity disorder, unspecified type; F41.9 Anxiety disorder, unspecified; L29.9 Pruritus, unspecified; O99.824 Streptococcus B carrier state complicating childbirth; Z37.0 Single live birth; Z3A.37 37 weeks gestation of pregnancy; Z87.891 Personal history of nicotine dependence; Z28.310 Unvaccinated for COVID-19; Z88.0 Allergy status to penicillin; Z88.2 Allergy status to sulfonamides; Z87.01 Personal history of pneumonia (recurrent)
CPT/HCPCS: 82565; 82570; 83615; 84156; 84450; 84460; 84520; 84550; 85025; 85610; 86850; 86900; 86901

== ENCOUNTER 2025-04-11 14:13 | Emergency (ER) | payer OTHER ==
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
--- NOTE | 2025-04-11 16:23 | US ---
EXAMINATION TYPE: Transabdominal DATE OF EXAM: 04/11/2025 3:44 PM COMPARISON: NONE CLINICAL INDICATION: Female, 34 years old with history of unknown location, bleeding, pain; Steadily increasing hCG levels, unable to identify location on prior ultrasound on TECHNIQUE: Transvaginal (TV) and Transabdominal (TA) with grayscale and color Doppler imaging includi ng first trimester . FINDINGS: EXAM MEASUREMENTS: GESTATIONAL AGE / DATING Physician Established: Not yet established Dates by LMP: 02/25/25 (6 weeks/3 days) EDC: 12/02/25 Dates by First Scan: unable to date on prior scan Dates by Current Scan for: No IUP seen at this time MATERNAL ANATOMY Uterus: 9.1x5.3x7.1cm Right Ovary: 3.5x2.4x3.1cm Left Ovary: 2.7x1.3x1.5cm Post CDS / Adnexa: wnl Presence of free fluid: no Presence of corpus luteal cyst: cyst noted on right ovary: 2.1x1.7x1.9cm Presence of subchorionic bleed: no GESTATION / SURVEY IUP: No IUP seen at this time Date of LMP: 02/25/25 Beta HcG (if available): Not available at this time Abnormal masslike thickening of the endometrium measuring 3.4 x 3.7 cm. IMPRESSION: 1. No evidence of intrauterine gestational sac, correlate with B-hCG. If positive, this could represe nt early , ectopic or spontaneous . Follow up pelvic ultrasound in 5-7 day s and serial beta hCG studies are recommended. 2. Indeterminate abnormal masslike thickening of the fundal portion of the endometrium measuring 3.4 x 3.7 cm. Recommend POWER SYSTEMS ENGINEER consultation. [facility], , 04/11/2025 4:20 PM
[2025-04-11 17:11] LABS: Basophils # (A) 0.04 10*3/uL (0.00-0.10); Basophils % (A) 0.4 %; HCT 37.5 % (37.2-46.3); HGB 12.7 g/dL (12.0-15.0); Lymphocytes # (A) 2.38 10*3/uL (0.90-5.00); Lymphocytes % (A) 24.8 %; MCH 28.7 pg (27.0-32.0); MCHC 33.9 g/dL (32.0-37.0); MCV 84.8 fL (80.0-97.0); Mean Platelet Volume 9.6 fL (9.5-12.2); Monocytes # (A) 0.71 10*3/uL (0.20-1.00); Monocytes % (A) 7.4 %; Neutrophils # (A) 6.36 10*3/uL (1.80-7.70); Neutrophils % (A) 66.2 %; Platelet Count 287 10*3/uL (140-440); RBC 4.42 10*6/uL (4.10-5.20); RDW 14.2 % (11.5-14.5); WBC 9.61 10*3/uL (4.50-10.00)
[2025-04-11 17:20] LABS: ALT 20 U/L (4-34); AST 21 U/L (14-36); African American GFR (CKD) >90 (>60 ml/min/1.73 sqM); Albumin 3.9 g/dL (3.5-5.0); Alkaline Phosphatase 43 U/L (38-126); Anion Gap 10 mmol/L; Blood Urea Nitrogen 10 mg/dL (7-17); Calcium 9.5 mg/dL (8.4-10.2); Carbon Dioxide 23 mmol/L (22-30); Chloride 104 mmol/L (98-107); Glucose 84 mg/dL (74-99); Non-African American GFR(CKD) >90 (>60 ml/min/1.73 sqM); Sodium 137 mmol/L (137-145); Total Bilirubin 0.4 mg/dL (0.2-1.3); Total Protein 6.7 g/dL (6.3-8.2)
[2025-04-11 17:26] LABS: Appearance,Urine Cloudy (Clear); Bacteria,Urine Occasional /hpf; Bilirubin,Urine Negative (Negative); Blood,Urine Moderate (Negative); Color,Urine Colorless; Glucose,Urine (UA) Negative (Negative); Ketones,Urine Negative (Negative); Leukocyte Esterase,Urine Negative (Negative); Mucus,Urine Rare /hpf; Nitrite,Urine Negative (Negative); Protein,Urine Negative (Negative); RBC,Urine 1 /hpf (0-5); Specific Gravity,Urine 1.011 (1.001-1.035); Squamous Epithelial Cell,Urine 1 /hpf (0-4); Urobilinogen,Urine <2.0 mg/dL (<2.0); WBC,Urine <1 /hpf (0-5)
[2025-04-11 17:36] LABS: HCG,Quantitative Serum 8436.8 mIU/mL
[2025-04-11 18:44] VITALS: BP 158/102; PULSE 99; RESP 18; TEMP 98
== END 2025-04-11 18:44 | disposition home or self-care (01) ==
LOC: EC 14:13
DX: O20.0 Threatened abortion (principal); O09.521 Supervision of elderly multigravida, first trimester; Z88.0 Allergy status to penicillin; Z88.1 Allergy status to other antibiotic agents; Z88.2 Allergy status to sulfonamides; Z3A.01 Less than 8 weeks gestation of pregnancy
CPT/HCPCS: 36415; 76801; 80053; 81001; 84702; 85025; 86850; 86900; 86901; 99284

== ENCOUNTER → 2025-04-13 | Outpatient (CLI) | payer OTHER ==
[2025-04-13 14:08] VITALS: BP 174/110; PULSE 91; RESP 16; TEMP 98.2
[2025-04-13] MEDS: METHOTREXATE 250 MG/10 ML IM NR (14:17)
[2025-04-13 14:19] LABS: HGB 12.8 g/dL (12.0-15.0); MCH 28.8 pg (27.0-32.0); MCHC 33.7 g/dL (32.0-37.0); MCV 85.6 fL (80.0-97.0); Mean Platelet Volume 9.7 fL (9.5-12.2); Platelet Count 302 10*3/uL (140-440); RBC 4.44 10*6/uL (4.10-5.20); RDW 14.1 % (11.5-14.5); WBC 9.51 10*3/uL (4.50-10.00)
[2025-04-13 14:33] LABS: ALT 19 U/L (4-34); AST 19 U/L (14-36); African American GFR (CKD) >90 (>60 ml/min/1.73 sqM); Blood Urea Nitrogen 8 mg/dL (7-17); Non-African American GFR(CKD) >90 (>60 ml/min/1.73 sqM)
== END ==
LOC: PROCWHC3 13:37
PROVIDERS: ATTEND Obstetrics & Gynecology Obstetrics
DX: O00.90 Unspecified ectopic pregnancy without intrauterine pregnancy (principal)
CPT/HCPCS: 82565; 84450; 84460; 84520; 85027; 96401; 36415; J9260; 96402

== ENCOUNTER → 2025-04-13 | Outpatient (CLI) | payer OTHER | END | disposition home or self-care (01) | LOC: LABWHC1 09:00 | PROVIDERS: ATTEND Physician Assistant | DX: O20.0 Threatened abortion (principal); Z3A.00 Weeks of gestation of pregnancy not specified | CPT/HCPCS: 36415; 84702 ==

== ENCOUNTER → 2025-04-16 | Outpatient (CLI) | payer OTHER | END | disposition home or self-care (01) | LOC: LABWHC1 14:52 | PROVIDERS: ATTEND Obstetrics & Gynecology Obstetrics | DX: O00.109 Unspecified tubal pregnancy without intrauterine pregnancy (principal) | CPT/HCPCS: 36415; 84702 ==

== ENCOUNTER 2025-04-29 02:00 | Observation (INO) | payer OTHER ==
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
[2025-04-29] MEDS: ACETAMINOPHEN TAB 325 MG TAB PO STA (03:02)
--- NOTE | 2025-04-29 03:54 | US ---
EXAM: US , Transvaginal CLINICAL HISTORY: ITS.REASON US Reason: ectopic with increased bleeding. LMP: 02/26/2025 TECHNIQUE: Real-time transvaginal obstetrical ultrasound of the maternal pelvis and a first trimester with image documentation. Transvaginal imaging was used for better evaluation of the fetus and adnexa. COMPARISON: 04/11/2025 FINDINGS: Exam somewhat limited due to patient's body habitus and excess bowel gas. Gestation: Demonstrates a right adnexal 2.5 x 2.5 x 1.6 cm complex area adjacent to the right ovary with a 4 mm yolk sac like structure. The pole itself is not seen. Uterus/cervix: The uterus measures 9.0 x 4.1 x 5.9 cm. No myometrial mass. The endometrial stripe thickness: 19 mm. Ovaries: Right ovary measured 4.2 x 2.5 x 2.6 cm. The left ovary obscured by bowel gas. Free fluid: Free fluid is seen at the right adnexal region.. IMPRESSION: No IUP is seen. There is possibly a right adnexal ectopic with a 4 mm yolk sac like structure. Presence of free fluid in the right adnexa. .
[2025-04-29 03:55] LABS: Basophils # (A) 0.03 10*3/uL (0.00-0.10); Basophils % (A) 0.5 %; Eosinophils # (A) 0.08 10*3/uL (0.04-0.35); Eosinophils % (A) 1.2 %; HGB 12.5 g/dL (12.0-15.0); Lymphocytes # (A) 2.65 10*3/uL (0.90-5.00); Lymphocytes % (A) 41.3 %; MCH 28.5 pg (27.0-32.0); MCHC 33.8 g/dL (32.0-37.0); MCV 84.3 fL (80.0-97.0); Mean Platelet Volume 9.7 fL (9.5-12.2); Monocytes % (A) 6.2 %; Neutrophils # (A) 3.25 10*3/uL (1.80-7.70); Neutrophils % (A) 50.6 %; Platelet Count 308 10*3/uL (140-440); RBC 4.39 10*6/uL (4.10-5.20); RDW 14.3 % (11.5-14.5); WBC 6.42 10*3/uL (4.50-10.00)
[2025-04-29] MEDS ORDERED: NALOXONE 0.4 MG/ML 1 ML VIAL IV PRN (04:11)
[2025-04-29] MEDS ORDERED: ACETAMINOPHEN IV (For NPO) 1,000 MG in EMPTY BAG 1 BAG IVPB PRN (04:12)
[2025-04-29] MEDS: SODIUM CHLORIDE 0.9% 1,000 ML IV SCH (05:06)
[2025-04-29] MEDS: MORPHINE SULFATE 4 MG/ML SYRINGE IV PRN (06:51)
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
[2025-04-29] MEDS: ACETAMINOPHEN TAB 500 MG TAB PO PRN (14:26)
--- NOTE | 2025-04-29 16:54 | US ---
EXAMINATION TYPE: Transabdominal DATE OF EXAM: 04/29/2025 4:32 PM COMPARISON: 04/29/2025 0237 hours. CLINICAL INDICATION: Female, 34 years old with history of ectopic ; proven right ectopic pre gnancy TECHNIQUE: Transvaginal (TV) and Transabdominal (TA) with grayscale and color Doppler imaging includi ng first trimester . FINDINGS: EXAM MEASUREMENTS: GESTATIONAL AGE / DATING Physician Established: Not yet established Dates by LMP: (8 weeks/ 6days) EDC: 12/01/2025 Dates by Current Scan for: (6 weeks/2 days) EDC: 12/21/2025 MATERNAL ANATOMY Uterus: Right Ovary: 3.4 x 2.7 cm Left Ovary: Not visualized Post CDS / Adnexa: wnl Presence of free fluid: no free fluid Presence of corpus luteal cyst: right ovary = 2.3 x 1.8 x 2.0 cm Presence of subchorionic bleed: no GESTATION / SURVEY IUP: No IUP seen at this time Date of LMP: 02/26/2025 Beta HcG (if available): Not available at this time Previous diagnosed right adnexal ectopic seen again= 3.5 x 2.4 x 2.0 cm. YS seen = 0.3 and possible CRL = 0.5 cm with negative FHT's. Endometrial canal is thickened to 2 cm. No intrauterine gestation identified. IMPRESSION: 1. Ectopic in the right adnexa with gestational sac and yolk sac present. Suspected crown-r ump length is present although no cardiac activity is identified at this time. Findings appear stable from comparison. [facility], , 04/29/2025 4:52 PM
[2025-04-29 17:19] LABS: HCT 38.2 % (37.2-46.3); HGB 12.6 g/dL (12.0-15.0); MCV 87.8 fL (80.0-97.0); Mean Platelet Volume 11.4 fL (9.5-12.2); Platelet Count 170 10*3/uL (140-440); RBC 4.35 10*6/uL (4.10-5.20); RDW 14.8 % (11.5-14.5); WBC 7.96 10*3/uL (4.50-10.00)
--- NOTE | 2025-04-29 17:40 | P.PN ---
Progress Note - Text Progress Note Date: 04/29/25 Patient appears comfortable upon entry to the room. Patient is sitting on the patient couch. She is able to ambulate through the room without pain. Patient states she was able to sleep during the day without difficulty. She has taken Tylenol x 1 for pain. Ultrasound was performed around 4 PM with no changes. No fluid in the abdomen is appreciated. Hemoglobin is noted to be stable at 12.6 on admission 12.5 at 1700. Patient states bleeding is scant/minimal. She had a bowel movement without difficulty or pain. No concerns with urination. Vital signs stable General Patient appears comfortable is visiting with her parents sitting with legs crossed on patient couch Abdomen soft mild tenderness noted in the right lower quadrant no guarding or tenderness appreciated no wincing upon exam is appreciated Extremities no edema is appreciated. Assessment Right ectopic Plan Will continue observation, awaiting 12-hour quantitative beta-hCG. Stable hemoglobin with little to no change 12.6-12.5
[2025-04-30 06:17] LABS: Basophils # (A) 0.04 10*3/uL (0.00-0.10); Basophils % (A) 0.5 %; Eosinophils # (A) 0.15 10*3/uL (0.04-0.35); HCT 36.6 % (37.2-46.3); HGB 11.8 g/dL (12.0-15.0); Lymphocytes # (A) 2.32 10*3/uL (0.90-5.00); Lymphocytes % (A) 31.1 %; MCH 28.2 pg (27.0-32.0); MCHC 32.2 g/dL (32.0-37.0); MCV 87.4 fL (80.0-97.0); Mean Platelet Volume 9.4 fL (9.5-12.2); Monocytes # (A) 0.49 10*3/uL (0.20-1.00); Monocytes % (A) 6.6 %; Neutrophils # (A) 4.42 10*3/uL (1.80-7.70); Neutrophils % (A) 59.4 %; Platelet Count 287 10*3/uL (140-440); RBC 4.19 10*6/uL (4.10-5.20); RDW 14.8 % (11.5-14.5); WBC 7.45 10*3/uL (4.50-10.00)
[2025-04-30 09:01] VITALS: BP 148/94; PULSE 79; RESP 17; TEMP 97.8
--- NOTE | 2025-04-30 10:04 | P.DS ---
Providers Date of admission: 04/29/25 04:13 Expected date of discharge: 04/30/25 Attending physician: Caroline Terry MD Primary care physician: Stated None - Discharge Diagnosis(es) (1) Ectopic Current Visit: Yes Status: Acute Hospital Course: This is a 34-year-old 3 para 1-0-2-1 that presented to the emergency department last evening(04/29) with complaints of increased pelvic pain and vaginal bleeding. Patient is currently being treated for a known right ectopic. Patient has received methotrexate x 2 with the last dose being 8 days ago. Patient states she began saturating a pad every hour and became concerned therefore presented to [facility] in [place] initially. Patient's blood pressure was noted to be elevated secondary to anxiety and she was subsequently transferred to [facility]. Yesterday patient did well bleeding had slowed, ultrasound was noted to be stable after 12 hours no change in hemoglobin was appreciated. Patient had a noted drop in her quantitative beta-hCG 9959 2 8039 this morning. Patient this morning states she is feeling well. She denies pain. She does note some vaginal bleeding moderate in nature. She has had a bowel movement without pain. She denies abdominal pain this morning. On physical exam she appears well ambulating throughout the room without difficulty, abdomen is soft nontender no rebound no guarding Patient does desire discharge home, discharge plan includes quantitative beta- hCG to be run stat early next week, Sunday or Sunday with a follow-up appo intment and ultrasound in my office. Patient is counseled that to continue with ectopic precautions increasing bleeding or pain patient should represent to the emergency department. Patient Condition at Discharge: Good Plan - Discharge Summary New Discharge Prescriptions: No Action No Known Home Medications Discharge Medication List No Known Home Medications 04/22/25 [History] Follow up Appointment(s)/Referral(s): Hue Thompson DO [Doctor of Osteopathic Medicine] - 1 Week (sun US and appt) Activity/Diet/Wound Care/Special Instructions: Ectopic precautions are reviewed. Increasing pain or bleeding patient is to represent to emergency department. Patient is to have close follow-up Sunday/Sunday at [facility] with quantitative beta-hCG to be run stat prior to appointment. Ultrasound is to be obtained at that time. Questions are answered and patient states understanding. Discharge Disposition: HOME SELF-CARE
== END 2025-04-30 10:24 | disposition home or self-care (01) ==
LOC: EC 02:00 → 4FBP 04:13
PROVIDERS: ADMIT Obstetrics & Gynecology; ATTEND Obstetrics & Gynecology
DX: O00.101 Right tubal pregnancy without intrauterine pregnancy (principal); F41.9 Anxiety disorder, unspecified; F90.9 Attention-deficit hyperactivity disorder, unspecified type; R03.0 Elevated blood-pressure reading, without diagnosis of hypertension; Z88.0 Allergy status to penicillin; Z88.1 Allergy status to other antibiotic agents; Z88.2 Allergy status to sulfonamides
CPT/HCPCS: 96374; 96361; 99285; 36415; 86900; 86901; 85025 ×2; 85027; 84702 ×2; 76801; 76817; G0378 ×2; J2270

== ENCOUNTER → 2025-05-04 | Outpatient (CLI) | payer OTHER ==
[2025-05-04 15:49] LABS: ALT 21 U/L (8-44); AST 19 U/L (13-35); Albumin 4.1 g/dL (3.8-4.9); Albumin/Globulin Ratio 1.64 Ratio (1.60-3.17); Alkaline Phosphatase 54 U/L (41-126); BUN/Creat Ratio 15.83 Ratio (12.00-20.00); Blood Urea Nitrogen 9.5 mg/dL (9.0-27.0); Calcium 9.5 mg/dL (8.7-10.3); Carbon Dioxide 20.6 mmol/L (21.6-31.8); Chloride 105 mmol/L (96-109); Chol/HDL Ratio 4.74 Ratio; Globulin 2.5 g/dL (1.6-3.3); Glucose 97 mg/dL (70-110); LDL Cholesterol,Calculated 140.2 mg/dL (0.0-131.0); Potassium 4.4 mmol/L (3.5-5.5); Sodium 138 mmol/L (135-145); Total Bilirubin 0.2 mg/dL (0.3-1.2); Total Protein 6.6 g/dL (6.2-8.2)
== END | disposition home or self-care (01) ==
LOC: LABWHC1 07:55
PROVIDERS: ATTEND Obstetrics & Gynecology Obstetrics
DX: E55.9 Vitamin D deficiency, unspecified (principal); O00.90 Unspecified ectopic pregnancy without intrauterine pregnancy; E66.813 Obesity, class 3; E78.2 Mixed hyperlipidemia
CPT/HCPCS: 36415; 80053; 80061; 82306; 84443; 84702

== ENCOUNTER → 2025-05-09 | Outpatient (CLI) | payer OTHER | END | disposition home or self-care (01) | LOC: LABWHC1 11:42 | PROVIDERS: ATTEND Obstetrics & Gynecology Obstetrics | DX: O00.90 Unspecified ectopic pregnancy without intrauterine pregnancy (principal) | CPT/HCPCS: 36415; 84702 ==

== ENCOUNTER → 2025-05-18 | Outpatient (CLI) | payer OTHER | END | disposition home or self-care (01) | LOC: LABWHC1 12:28 | PROVIDERS: ATTEND Obstetrics & Gynecology Obstetrics | DX: O00.90 Unspecified ectopic pregnancy without intrauterine pregnancy (principal) | CPT/HCPCS: 36415; 84702 ==

== ENCOUNTER → 2025-05-28 | Outpatient (CLI) | payer OTHER | END | disposition home or self-care (01) | LOC: LABWHC1 13:29 | PROVIDERS: ATTEND Obstetrics & Gynecology Obstetrics | DX: O00.90 Unspecified ectopic pregnancy without intrauterine pregnancy (principal) | CPT/HCPCS: 36415; 84702 ==

== ENCOUNTER → 2025-06-04 | Outpatient (CLI) | payer OTHER | END | disposition home or self-care (01) | LOC: LABWHC1 15:17 | PROVIDERS: ATTEND Obstetrics & Gynecology Obstetrics | DX: O00.90 Unspecified ectopic pregnancy without intrauterine pregnancy (principal) | CPT/HCPCS: 36415; 84702 ==

== ENCOUNTER → 2025-06-13 | Outpatient (CLI) | payer OTHER | END | disposition home or self-care (01) | LOC: LABWHC1 10:50 | PROVIDERS: ATTEND Obstetrics & Gynecology Obstetrics | DX: O00.90 Unspecified ectopic pregnancy without intrauterine pregnancy (principal) | CPT/HCPCS: 36415; 84702 ==